=== PATIENT | female | born 1960 | race Two or more races ===

== ENCOUNTER 2021-01-07 08:27 | Inpatient (IN) | payer OTHER ==
[~2021-01-07] VITALS: Ht 167.6 cm; Wt 113.4 kg
[2021-01-07] MEDS ORDERED: SYNTHROID125 MCG PO (09:48)
[2021-01-07] MEDS ORDERED: ATACAND PO (09:48)
[2021-01-14] MEDS ORDERED: CANDESARTAN CILE4 MG (08:07)
[2021-01-16] MEDS ORDERED: PERCOCET 5-3251 EACH PO (17:11)
[2021-01-16] MEDS ORDERED: DUI500 PO (17:11)
[2021-01-16] MEDS ORDERED: ELIQUIS2.5 MG PO (17:11)
== END 2021-01-16 20:17 | DRG 470 ==
LOC: O/R 01-14 06:07 → SURH 01-14 06:07
PROVIDERS: ADMIT Orthopaedic Surgery; ATTEND Orthopaedic Surgery
PROC: 0SNC0ZZ Release Right Knee Joint, Open Approach (ICD-10-PCS; 2021-01-14)
PROC: 0SRC0J9 Replacement of Right Knee Joint with Synthetic Substitute, Cemented, Open Approach (ICD-10-PCS; principal; 2021-01-14 09:45)
DX: M17.11 Unilateral primary osteoarthritis, right knee (principal); M22.11 Recurrent subluxation of patella, right knee; I10 Essential (primary) hypertension; E66.8 Other obesity; Z20.822 Contact with and (suspected) exposure to COVID-19; E07.89 Other specified disorders of thyroid